=== PATIENT | male | born 1980 | race African-American/Black ===

== ENCOUNTER 2020-05-06 09:29 | Emergency (ER) | payer OTHER ==
[~2020-05-06] VITALS: Ht 167.6 cm; Wt 66.7 kg
[2020-05-06 09:41] VITALS: BP 114/71
[2020-05-06] MEDS ORDERED: IBUPROFEN600 M1 ORAL (10:32)
--- NOTE | 2020-05-06 10:37 | Emergency Room Report ---
History of Present Illness General Chief Complaint: Upper Extremity Injury Source: Patient Present Illness HPI 39-year-old male here with 3 days of right hand pain after striking his hand against a hard piece of wood. The patient was doing a small construction project when he struck his right palm against a heavy piece of wood 3 days ago. He has been having worsening pain and swelling since this occurred. No break in the skin. No other injuries. Patient takes mesalamine for Crohn's disease. Otherwise healthy. No focal numbness or weakness. Normal range of motion. Allergies: Coded Allergies: No Known Allergies (Unverified , 05/06/20) COVID-19 Screening Contact w/high risk pt: Yes Experienced COVID-19 symptoms?: No COVID-19 Testing performed [employer]: Yes COVID-19 Screening: PUI COVID-19 COVID-19 Testing Source: 05/05/20 Nursing Documentation-[facility] Past Medical History: No History, Except For Hx Asthma: Yes Review of Systems All Other Systems: negative except mentioned in HPI Physical Exam Vital Signs Date Time Temp Pulse Resp B/P (MAP) Pulse Ox O2 Delivery O2 Flow Rate FiO2 05/06/20 09:32 98.1 90 20 117/72 (87) 94 Room Air Sp02 EP Interpretation: reviewed, normal General Appearance: no apparent distress, alert, non-toxic Head: normocephalic, atraumatic Eyes: bilateral eye normal inspection, bilateral eye PERRL ENT: hearing grossly normal, normal pharynx, no angioedema, normal voice Neck: full range of motion, supple/symm/no masses Respiratory: chest non-tender, lungs clear, normal breath sounds, speaking full sentences Cardiovascular #1: regular rate, rhythm, no edema Cardiovascular #2: 2+ carotid (R), 2+ carotid (L), 2+ radial (R), 2+ radial (L), 2+ dorsalis pedis (R), 2+ dorsalis pedis (L) Gastrointestinal: normal bowel sounds, non tender, soft, non-distended, no guarding, no rebound Rectal: deferred Genitourinary: normal inspection, no CVA tenderness Musculoskeletal: back normal, normal range of motion, gait/station normal, other - Tenderness on palpation of the palmar aspect of the right third distal metacarpal. Normal range of motion. Neurovascularly intact Neurologic: alert, motor strength/tone normal, oriented x3, sensory intact, responsive, speech normal Psychiatric: judgement/insight normal, memory normal, mood/affect normal, no suicidal/homicidal ideation Reflexes: 3+ bicep (R), 3+ bicep (L), 3+ tricep (R), 3+ tricep (L), 3+ knee (R), 3+ knee (L) Lymphatic: no adenopathy Medical Decision Making Diagnostic Impression: Primary Impression: Injury of upper extremity ER Course X-ray right hand: No fracture or dislocation Splint note: Jerson wrap applied to right hand. Patient neurovascular intact before and after the Jerson wrap was placed. 39-year-old male here with right hand pain after striking his right hand against a heavy piece of wood 3 days ago. Patient was neurovascular intact in the emergency department. There is no obvious swelling but there was tenderness on palpation of the right third distal metacarpal. X-ray did not reveal any acute abnormalities. Jerson wrap was applied to the right hand. Patient will follow-up with primary care. Discharged in stable condition. Last Vital Signs Date Time Temp Pulse Resp B/P (MAP) Pulse Ox O2 Delivery O2 Flow Rate FiO2 05/06/20 09:41 98.1 79 18 114/71 96 Room Air Disposition: HOME, SELF-CARE Condition: Stable Scripts Ibuprofen* (MOTRIN*) 600 Mg Tablet 600 MG ORAL Q6H PRN for FOR PAIN, #20 TAB 0 Refills Prov: Kong Allen M.D. 05/06/20 Referrals: [facility] Departure Forms: Return to Work Other Restrictions: Do not lift anything heavier than 10 pounds with the right hand for 7 days Patient Instructions: Hand Contusion Kong Allen M.D. May 06, 2020 10:37
[2020-05-06 10:41] VITALS: BP 118/70
--- NOTE | 2020-05-06 13:48 | Diagnostic Imaging Report ---
INDICATION: Hand pain TECHNIQUE: Frontal, lateral, and oblique views of the right hand. COMPARISON: None FINDINGS: No acute fracture or dislocation. Deformity of the fifth metacarpal head may be developmental or secondary to old trauma. I spaces are maintained. No acute soft tissue abnormality. IMPRESSION: No acute fracture or dislocation.
== END 2020-05-06 10:45 | disposition home or self-care (01) ==
LOC: EMR 10:20
DX: S69.91XA Unspecified injury of right wrist, hand and finger(s), initial encounter (principal); J45.909 Unspecified asthma, uncomplicated; K50.90 Crohn's disease, unspecified, without complications; Z79.899 Other long term (current) drug therapy; W22.8XXA Striking against or struck by other objects, initial encounter; Y93.9 Activity, unspecified; Y92.9 Unspecified place or not applicable
CPT/HCPCS: 73130; Z7502; 99283

== ENCOUNTER 2020-05-13 10:05 | Inpatient (IN) | payer OTHER ==
[~2020-05-13] VITALS: Ht 167.6 cm; Wt 66.7 kg
[~2020-05-13 10:05] MED LIST: IBUPROFEN600 M1 ORAL
[2020-05-13 10:29] VITALS: BP 118/74
--- NOTE | 2020-05-13 10:43 | Emergency Room Report ---
History of Present Illness General Chief Complaint: Upper Extremity Injury Source: Patient Present Illness HPI Patient returns after being seen on May 06. He injured his right hand try to hammer a piece of wood with his palm. X-rays were done that were negative. He now presents with inability to move his fingers well, swelling, fevers chills and pain radiating up his arm. He feels his veins are inflamed and infected. The pain is rated 7/10 and aching and pressure in the hand. Unknown last tetanus vaccination. Patient denies exposure to Covid positive contacts. No sore throat, chest pain, palpitations, nausea, vomiting, diarrhea, dysuria, abdominal pain, shortness of breath, depression, anxiety, visual changes, dizziness, headache. History of asthma. Allergies: Coded Allergies: No Known Allergies (Unverified , 05/06/20) COVID-19 Screening Contact w/high risk pt: No Experienced COVID-19 symptoms?: No COVID-19 Testing performed [employer]CR[employer]: Yes COVID-19 Screening: Negative COVID-19 COVID-19 Testing Source: nasal Patient History Past Medical History: see triage record, old chart reviewed Social History: Reports: smoking, alcohol use, drug use - THC Social History Narrative Works construction jobs Reviewed Nursing Documentation: PMH: Agreed; PSxH: Agreed Nursing Documentation-PMH Past Medical History: No History, Except For Hx Asthma: Yes Review of Systems All Other Systems: negative except mentioned in HPI Physical Exam Vital Signs Date Time Temp Pulse Resp B/P (MAP) Pulse Ox O2 Delivery O2 Flow Rate FiO2 05/13/20 10:18 98.2 111 16 118/76 (90) 98 Room Air Sp02 EP Interpretation: reviewed, normal General Appearance: well appearing, no apparent distress, GCS 15, non-toxic Head: normocephalic Eyes: bilateral eye normal inspection, bilateral eye PERRL, bilateral eye EOMI ENT: moist mucus membranes Neck: supple Respiratory: lungs clear, normal breath sounds Cardiovascular #1: normal peripheral pulses, no edema, tachycardia Cardiovascular #2: 2+ radial (R) - Good capillary refill Gastrointestinal: normal inspection, normal bowel sounds, non tender, no mass, non-distended Musculoskeletal: back normal, gait/station normal, tender - And, swelling - Hand, other - Painful extension mainly of middle finger and unable to make a fist Neurologic: alert, distal neuro normal, oriented x3 Psychiatric: mood/affect normal Skin: warm/dry, other - Center of Palm with possible abscess Medical Decision Making Diagnostic Impression: Primary Impression: Hand flexor tenosynovitis ER Course Patient presents after hand trauma 10 days ago with swelling appearance of possible pus in the palm and pain with movement of his fingers. Clinical diagnosis is deep palm infection with flexor tendon involvement, abscess, cellulitis amongst others. Work-up is undertaken with labs including blood cultures and antibiotics ordered along with analgesia. This is a serious infection of the hand and will need evaluation by orthopedics or general surgery along with ongoing IV antibiotics. X-rays are reviewed. Soft tissue swelling without fracture. Leukocytosis. CMP normal. Antibiotics administered. Patient reports increased pain. Patient evaluated by general surgeon in the emergency department. Patient admitted for IV antibiotics and further evaluation. Laboratory Tests Test 05/13/20 10:44 05/13/20 11:29 White Blood Count 24.8 K/UL (4.8-10.8) *H Red Blood Count 4.86 M/UL (4.70-6.10) Hemoglobin 15.7 G/DL (14.2-18.0) Hematocrit 44.6 % (42.0-52.0) Mean Corpuscular Volume 92 FL (80-99) Mean Corpuscular Hemoglobin 32.2 PG (27.0-31.0) H Mean Corpuscular Hemoglobin Concent 35.1 G/DL (32.0-36.0) Red Cell Distribution Width 14.2 % (11.6-14.8) Platelet Count 198 K/UL (150-450) Mean Platelet Volume 7.8 FL (6.5-10.1) Neutrophils (%) (Auto) % (45.0-75.0) Lymphocytes (%) (Auto) % (20.0-45.0) Monocytes (%) (Auto) % (1.0-10.0) Eosinophils (%) (Auto) % (0.0-3.0) Basophils (%) (Auto) % (0.0-2.0) Differential Total Cells Counted 100 Neutrophils % (Manual) 82 % (45-75) H Lymphocytes % (Manual) 11 % (20-45) L Monocytes % (Manual) 5 % (1-10) Eosinophils % (Manual) 0 % (0-3) Basophils % (Manual) 0 % (0-2) Band Neutrophils 2 % (0-8) Platelet Estimate Adequate Platelet Morphology Normal Red Blood Cell Morphology Normal Erythrocyte Sedimentation Rate 14 MM/HR (0-15) Prothrombin Time 11.2 SEC (9.30-11.50) Prothrombin Time INR 1.0 (0.9-1.1) Activated Partial Thromboplast Time 31 SEC (23-33) Sodium Level 134 MMOL/L (136-145) L Potassium Level 3.6 MMOL/L (3.5-5.1) Chloride Level 97 MMOL/L (98-107) L Carbon Dioxide Level 28 MMOL/L (21-32) Anion Gap 9 mmol/L (5-15) Blood Urea Nitrogen 7 mg/dL (7-18) Creatinine 0.9 MG/DL (0.55-1.30) Estimated Glomerular Filtration Rate > 60 mL/min (>60) Glucose Level 107 MG/DL (74-106) H Lactic Acid Level 1.90 mmol/L (0.4-2.0) Calcium Level 8.9 MG/DL (8.5-10.1) Total Bilirubin 0.4 MG/DL (0.2-1.0) Aspartate Amino Transferase (AST) 22 U/L (15-37) Alanine Aminotransferase (ALT) 22 U/L (12-78) Alkaline Phosphatase 68 U/L (46-116) Total Protein 8.4 G/DL (6.4-8.2) H Albumin 3.2 G/DL (3.4-5.0) L Globulin 5.2 g/dL Albumin/Globulin Ratio 0.6 (1.0-2.7) L Urine Color Pale yellow Urine Appearance Clear Urine pH 6.5 (4.5-8.0) Urine Specific [place] 1.005 (1.005-1.035) Urine Protein Negative (NEGATIVE) Urine Glucose (UA) Negative (NEGATIVE) Urine Ketones Negative (NEGATIVE) Urine Blood 2+ (NEGATIVE) H Urine Nitrite Negative (NEGATIVE) Urine Bilirubin Negative (NEGATIVE) Urine Urobilinogen Normal MG/DL (0.0-1.0) Urine Leukocyte Esterase Negative (NEGATIVE) Urine RBC 2-4 /HPF (0 - 0) H Urine WBC 0-2 /HPF (0 - 0) Urine Squamous Epithelial Cells None /LPF (NONE/OCC) Urine Bacteria Occasional /HPF (NONE) Other X-Ray Diagnostic Results Other X-Ray Diagnostic Results : X-Ray ordered: Hand May 06 # of Views/Limited Vs Complete: 3 View Indication: Other EP Interpretation: Yes Interpretation: no dislocation, no soft tissue swelling, no fractures Impression: No acute disease Electronically Signed by: Electronically signed by Thanh Burnham MD Last Vital Signs Date Time Temp Pulse Resp B/P (MAP) Pulse Ox O2 Delivery O2 Flow Rate FiO2 05/13/20 18:51 98.3 05/13/20 10:29 88 16 118/74 98 Room Air Status: improved Disposition: ADMITTED INPATIENT Condition: Serious Scripts No Active Prescriptions or Reported Meds Referrals: NON PHYSICIAN (PCP) Thanh Burnham MD May 13, 2020 10:43
[2020-05-13] MEDS ORDERED: Vancomycin 1 GM in NS 275 ML IVPB ONE (10:45)
[2020-05-13] MEDS ORDERED: Tetanus/Diptheria/Pertussis IM ONE (10:45)
[2020-05-13] MEDS ORDERED: Ketorolac 30mg Inj IV ONE ×2 (10:45→18:15)
[2020-05-13] MEDS ORDERED: Piperacillin/Tazobactam 3.375 GM in NS 110 ML IVPB ONE (10:45)
[2020-05-13 11:07] LABS: HEMATOCRIT 44.6 % (42.0-52.0); HEMOGLOBIN 15.7 G/DL (14.2-18.0); MEAN CORPUSCULAR VOLUME 92 FL (80-99); PLATELET COUNT 198 K/UL (150-450); RED BLOOD COUNT 4.86 M/UL (4.70-6.10); RED CELL DISTRIBUTION WIDTH 14.2 % (11.6-14.8)
[2020-05-13 11:11] LABS: WHITE BLOOD COUNT 24.8 K/UL (4.8-10.8)
[2020-05-13 11:18] LABS: ANION GAP 9 mmol/L (5-15); BLOOD UREA NITROGEN 7 mg/dL (7-18); CALCIUM 8.9 MG/DL (8.5-10.1); CARBON DIOXIDE 28 MMOL/L (21-32); CHLORIDE 97 MMOL/L (98-107); CREATININE 0.9 MG/DL (0.55-1.30); POTASSIUM 3.6 MMOL/L (3.5-5.1); SODIUM 134 MMOL/L (136-145)
[2020-05-13 11:23] LABS: ALANINE AMINOTRANSFERASE 22 U/L (12-78); ALBUMIN 3.2 G/DL (3.4-5.0); ALBUMIN/GLOBULIN RATIO 0.6 (1.0-2.7); ALKALINE PHOSPHATASE 68 U/L (46-116); ASPARTATE AMINO TRANSFERASE 22 U/L (15-37); BILIRUBIN,TOTAL 0.4 MG/DL (0.2-1.0)
[2020-05-13 12:57] LABS: APPEARANCE,URINE CLEAR; BILIRUBIN, URINE NEGATIVE (NEGATIVE); COLOR,URINE PALE YELLOW; GLUCOSE, URINE (UA) NEGATIVE (NEGATIVE); KETONES,URINE NEGATIVE (NEGATIVE); LEUKOCYTE ESTERASE ,URINE NEGATIVE (NEGATIVE); NITRITE,URINE NEGATIVE (NEGATIVE); PH,URINE 6.5 (4.5-8.0); PROTEIN,URINE NEGATIVE (NEGATIVE); UROBILINOGEN,URINE NORMAL MG/DL (0.0-1.0)
[2020-05-13] MEDS ORDERED: Morphine Sulfate 4mg/ml Inj (IV USE ONLY) IVP ONE (15:45)
--- NOTE | 2020-05-13 16:06 | Consultation ---
History of Present Illness General Date patient seen: May 13, 2020 Reason for Hospitalization: Upper Extremity Injury Present Illness HPI This is a very pleasant 31-year-old male who presents [facility] complaining of worsening right hand pain. Patient states approximately weeks ago he was using hand to hammer in something for himself. Initially noted some pain but no significant injury. Over the course of the subsequent next few days the patient identified the hand beginning to swell. Came in for evaluation was given local care and continue to monitor. Unfortunately hand has become more swollen with limited range of motion discomfort from swelling. Surgery called to eval and assist with care. Patient seen, patient evaluate, chart reviewed. No nausea vomiting. Did note some subjective fevers. Allergies: Coded Allergies: No Known Allergies (Unverified , 05/06/20) COVID-19 Screening Contact w/high risk pt: No Experienced COVID-19 symptoms?: No Medication History No Active Prescriptions or Reported Meds Patient History History Provided By: Patient, Medical Record, PMD Healthcare decision maker Resuscitation status Advanced Directive on File Past Medical/Surgical History Past Medical/Surgical History: (1) Injury of upper extremity (2) Injury of right upper extremity Review of Systems Review of Symptoms General ROS: no weight loss or fever Psychological ROS: no depression or mood changes, no memory loss Ophthalmic ROS: no visual changes or eye irritation ENT ROS: no nasal congestion, hearing loss, dizziness Allergy and Immunology ROS: no allergic symptoms or urticaria Hematological and Lymphatic ROS: no swollen glands, unusual bleeding or bruising Endocrine ROS: no polyuria, polydipsia, weight changes, temperature intolerance Respiratory ROS: no cough, shortness of breath, or wheezing Cardiovascular ROS: no chest pain or dyspnea on exertion Gastrointestinal ROS: denies abdominal pain, bright red blood in stool. Musculoskeletal ROS: no myalgias or arthralgias Neurological ROS: no TIA or stroke symptoms Dermatological ROS: no new or changing skin lesions, rashes or pruritis Physical Exam Physical Exam General appearance: alert, cooperative, no distress, appears stated age Head: Normocephalic, without obvious abnormality, atraumatic Eyes: conjunctivae/corneas clear. PERRL, EOM's intact. Fundi benign Throat: Lips, mucosa, and tongue normal. Teeth and gums normal Neck: supple, symmetrical, trachea midline, no adenopathy, thyroid: not enlarged, symmetric, no tenderness/mass/nodules, no carotid bruit and no JVD Lungs: clear to auscultation bilaterally Heart: regular rate and rhythm, S1, S2 normal, no murmur, click, rub or gallop Abdomen: soft, non-tender. Bowel sounds normal. No masses, no organomegaly Extremities: extremities ++traumatic, no cyanosis ++edema no drainage Pulses: 2+ and symmetric Skin: Skin color, texture, turgor normal. No rashes or lesions Neurologic: Grossly normal Last 24 Hour Vital Signs Date Time Temp Pulse Resp B/P (MAP) Pulse Ox O2 Delivery O2 Flow Rate FiO2 05/13/20 11:26 98.3 05/13/20 10:29 98.0 88 16 118/74 98 Room Air 05/13/20 10:18 98.2 111 16 118/76 (90) 98 Room Air Laboratory Tests Test 05/13/20 10:44 05/13/20 11:29 White Blood Count 24.8 K/UL (4.8-10.8) *H Red Blood Count 4.86 M/UL (4.70-6.10) Hemoglobin 15.7 G/DL (14.2-18.0) Hematocrit 44.6 % (42.0-52.0) Mean Corpuscular Volume 92 FL (80-99) Mean Corpuscular Hemoglobin 32.2 PG (27.0-31.0) H Mean Corpuscular Hemoglobin Concent 35.1 G/DL (32.0-36.0) Red Cell Distribution Width 14.2 % (11.6-14.8) Platelet Count 198 K/UL (150-450) Mean Platelet Volume 7.8 FL (6.5-10.1) Neutrophils (%) (Auto) % (45.0-75.0) Lymphocytes (%) (Auto) % (20.0-45.0) Monocytes (%) (Auto) % (1.0-10.0) Eosinophils (%) (Auto) % (0.0-3.0) Basophils (%) (Auto) % (0.0-2.0) Differential Total Cells Counted 100 Neutrophils % (Manual) 82 % (45-75) H Lymphocytes % (Manual) 11 % (20-45) L Monocytes % (Manual) 5 % (1-10) Eosinophils % (Manual) 0 % (0-3) Basophils % (Manual) 0 % (0-2) Band Neutrophils 2 % (0-8) Platelet Estimate Adequate Platelet Morphology Normal Red Blood Cell Morphology Normal Erythrocyte Sedimentation Rate 14 MM/HR (0-15) Prothrombin Time 11.2 SEC (9.30-11.50) Prothromb Time International Ratio 1.0 (0.9-1.1) Activated Partial Thromboplast Time 31 SEC (23-33) Sodium Level 134 MMOL/L (136-145) L Potassium Level 3.6 MMOL/L (3.5-5.1) Chloride Level 97 MMOL/L (98-107) L Carbon Dioxide Level 28 MMOL/L (21-32) Anion Gap 9 mmol/L (5-15) Blood Urea Nitrogen 7 mg/dL (7-18) Creatinine 0.9 MG/DL (0.55-1.30) Estimat Glomerular Filtration Rate > 60 mL/min (>60) Glucose Level 107 MG/DL (74-106) H Lactic Acid Level 1.90 mmol/L (0.4-2.0) Calcium Level 8.9 MG/DL (8.5-10.1) Total Bilirubin 0.4 MG/DL (0.2-1.0) Aspartate Amino Transf (AST/SGOT) 22 U/L (15-37) Alanine Aminotransferase (ALT/SGPT) 22 U/L (12-78) Alkaline Phosphatase 68 U/L (46-116) Total Protein 8.4 G/DL (6.4-8.2) H Albumin 3.2 G/DL (3.4-5.0) L Globulin 5.2 g/dL Albumin/Globulin Ratio 0.6 (1.0-2.7) L Urine Color Pale yellow Urine Appearance Clear Urine pH 6.5 (4.5-8.0) Urine Specific [place] 1.005 (1.005-1.035) Urine Protein Negative (NEGATIVE) Urine Glucose (UA) Negative (NEGATIVE) Urine Ketones Negative (NEGATIVE) Urine Blood 2+ (NEGATIVE) H Urine Nitrite Negative (NEGATIVE) Urine Bilirubin Negative (NEGATIVE) Urine Urobilinogen Normal MG/DL (0.0-1.0) Urine Leukocyte Esterase Negative (NEGATIVE) Urine RBC 2-4 /HPF (0 - 0) H Urine WBC 0-2 /HPF (0 - 0) Urine Squamous Epithelial Cells None /LPF (NONE/OCC) Urine Bacteria Occasional /HPF (NONE) Height (Feet): 5 Height (Inches): 6.00 Weight (Pounds): 147 Assessment/Plan Problem List: (1) Injury of upper extremity Assessment & Plan: 39-year-old male with right hand swelling after using his hand as a hammer to impaled some wood in. Initially seen plain films done no fracture. Subsequently has developed edema. Subjective fevers. Labs noted prior imaging reviewed. No fluctuation identified currently. Edema. Potential residual trauma or potential infection. No foreign body identified. Patient will be admitted for IV antibiotics. Considerations of orthopedic hand surgery evaluation. Imaging consider MRI or CT of the hand. Keep right hand elevated to allow with flow. Wash hand. Antibiotics. Will follow with recommendations. Thank you for let me participation's care ICD Codes: S49.90XA - Unspecified injury of shoulder and upper arm, unspecified arm, initial encounter SNOMED: 642889131 (2) Injury of right upper extremity Assessment & Plan: No acute fracture or dislocation. Deformity of the fifth metacarpal head may be developmental or secondary to old trauma. I spaces are maintained. No acute soft tissue abnormality. IMPRESSION: No acute fracture or dislocation. ICD Codes: S49.91XA - Unspecified injury of right shoulder and upper arm, initial encounter SNOMED: [id number] Junior Mac May 13, 2020 16:06
[2020-05-13] MEDS ORDERED: Miralax 17gm pkt ORAL PRN (16:30)
[2020-05-13] MEDS ORDERED: Albuterol/Ipratropium 3ml neb HHN PRN (16:30)
[2020-05-13] MEDS ORDERED: Ketorolac 30mg Inj ONE (18:13)
[2020-05-13] MEDS: Heparin 5000 units/ml inj SUBQ SCH (21:56)
[2020-05-13 22:00] VITALS: BP 121/73
[2020-05-13] MEDS: Cefepime HCl 2 GM in D5W 110 ML IV SCH (22:00)
[2020-05-13] MEDS: Vancomycin 1gm/D5W 275ml IVPB SCH ×2 (23:28)
[2020-05-13] MEDS: Ketorolac 30mg Inj IV PRN (23:41)
[2020-05-14] VITALS: BP 124/69
[2020-05-14] MEDS ORDERED: Vancomycin 1 GM in D5W 275 ML IV SCH (00:30)
[2020-05-14 04:00] VITALS: BP 131/92
[2020-05-14 06:15] LABS: HEMATOCRIT 41.5 % (42.0-52.0); HEMOGLOBIN 14.9 G/DL (14.2-18.0); MEAN CORPUSCULAR VOLUME 90 FL (80-99); PLATELET COUNT 198 K/UL (150-450); RED CELL DISTRIBUTION WIDTH 14.3 % (11.6-14.8)
[2020-05-14] MEDS: Ketorolac 30mg Inj IV PRN ×2 (06:38→12:41)
[2020-05-14 06:43] LABS: WHITE BLOOD COUNT 25.8 K/UL (4.8-10.8)
[2020-05-14 06:49] LABS: ALANINE AMINOTRANSFERASE 26 U/L (12-78); ALBUMIN 2.7 G/DL (3.4-5.0); ALBUMIN/GLOBULIN RATIO 0.6 (1.0-2.7); ALKALINE PHOSPHATASE 74 U/L (46-116); ANION GAP 6 mmol/L (5-15); ASPARTATE AMINO TRANSFERASE 33 U/L (15-37); BILIRUBIN,TOTAL 0.5 MG/DL (0.2-1.0); BLOOD UREA NITROGEN 10 mg/dL (7-18); CALCIUM 8.6 MG/DL (8.5-10.1); CARBON DIOXIDE 29 MMOL/L (21-32); CHLORIDE 98 MMOL/L (98-107); SODIUM 133 MMOL/L (136-145)
[2020-05-14 08:00] VITALS: BP 120/79
--- NOTE | 2020-05-14 08:22 | Consultation ---
History of Present Illness General Date patient seen: May 14, 2020 Time patient seen: 13:18 Chief Complaint: Upper Extremity Injury Referring physician: Dr. Mcfarland Reason for Consultation: Sepsis Present Illness HPI 39yo M who injured his R hand while trying to hammer a piece of wood w/ his palm on 05/06, XRs at that time were neg, now representing with inability to move his fingers as well as swelling, fevers/chills and pain radiating up his arm. ID consulted for infection. In house, pt AF and HDS but with leukocytosis to 25. Pt reports numbness of R palmar surface and in 2nd and 3rd fingers, unable to flex all 5 fingers 2/2 pain. Feels that hand is same as yesterday, not worse and not better. Pain and swelling extends up R arm, feels that "it's in my veins". Confirmed he got the Tdap in ED. Allergies: Coded Allergies: No Known Allergies (Unverified , 05/06/20) Medication History No Active Prescriptions or Reported Meds Patient History Healthcare decision maker Resuscitation status Advanced Directive on File Review of Systems ROS Narrative 10-point ROS neg except as noted in HPI Physical Exam Physical Exam Narrative Gen: NAD HEENT: NCAT Pulm: BL chest rise on RA Abd: Non-distended Ext: LUE wnl. RUE w/ R hand swelling and erythema and warmth, decreased ROM of fingers 2/2 swelling, unable to flex 2/2 pain. Distal palmar surface w/ what appears to be abscess underneath skin, bubbling of skin w/ discoloration under, numb in this area. Numbness of 2nd and 3rd fingers. Erythema/swelling extending up R hard to R elbow. Neuro: Awake, alert, interactive Last 24 Hour Vital Signs Date Time Temp Pulse Resp B/P (MAP) Pulse Ox O2 Delivery O2 Flow Rate FiO2 05/14/20 04:00 99.3 77 18 131/92 (105) 99 05/14/20 00:11 98.1 05/14/20 00:00 98.7 82 16 124/69 (87) 99 05/13/20 22:00 98.1 75 18 121/73 (89) 97 05/13/20 21:40 Room Air 05/13/20 21:30 97.5 78 18 122/69 97 Room Air 05/13/20 18:51 98.3 05/13/20 16:09 98.3 05/13/20 11:26 98.3 05/13/20 10:29 98.0 88 16 118/74 98 Room Air 05/13/20 10:18 98.2 111 16 118/76 (90) 98 Room Air Intake and Output 05/13/20 05/14/20 19:00 07:00 Intake Total 375 ml 1025.000 ml Balance 375 ml 1025.000 ml Intake Oral 640 ml IV Total 375 ml 385.000 ml # Voids 2 Laboratory Tests Test 05/13/20 10:44 05/13/20 11:29 05/14/20 05:51 White Blood Count 24.8 K/UL (4.8-10.8) *H 25.8 K/UL (4.8-10.8) *H Red Blood Count 4.86 M/UL (4.70-6.10) 4.60 M/UL (4.70-6.10) L Hemoglobin 15.7 G/DL (14.2-18.0) 14.9 G/DL (14.2-18.0) Hematocrit 44.6 % (42.0-52.0) 41.5 % (42.0-52.0) L Mean Corpuscular Volume 92 FL (80-99) 90 FL (80-99) Mean Corpuscular Hemoglobin 32.2 PG (27.0-31.0) H 32.4 PG (27.0-31.0) H Mean Corpuscular Hemoglobin Concent 35.1 G/DL (32.0-36.0) 35.9 G/DL (32.0-36.0) Red Cell Distribution Width 14.2 % (11.6-14.8) 14.3 % (11.6-14.8) Platelet Count 198 K/UL (150-450) 198 K/UL (150-450) Mean Platelet Volume 7.8 FL (6.5-10.1) 7.1 FL (6.5-10.1) Neutrophils (%) (Auto) % (45.0-75.0) % (45.0-75.0) Lymphocytes (%) (Auto) % (20.0-45.0) % (20.0-45.0) Monocytes (%) (Auto) % (1.0-10.0) % (1.0-10.0) Eosinophils (%) (Auto) % (0.0-3.0) % (0.0-3.0) Basophils (%) (Auto) % (0.0-2.0) % (0.0-2.0) Differential Total Cells Counted 100 Neutrophils % (Manual) 82 % (45-75) H Pending Lymphocytes % (Manual) 11 % (20-45) L Pending Monocytes % (Manual) 5 % (1-10) Eosinophils % (Manual) 0 % (0-3) Basophils % (Manual) 0 % (0-2) Band Neutrophils 2 % (0-8) Platelet Estimate Adequate Pending Platelet Morphology Normal Pending Red Blood Cell Morphology Normal Erythrocyte Sedimentation Rate 14 MM/HR (0-15) Prothrombin Time 11.2 SEC (9.30-11.50) Prothromb Time International Ratio 1.0 (0.9-1.1) Activated Partial Thromboplast Time 31 SEC (23-33) Sodium Level 134 MMOL/L (136-145) L 133 MMOL/L (136-145) L Potassium Level 3.6 MMOL/L (3.5-5.1) 4.0 MMOL/L (3.5-5.1) Chloride Level 97 MMOL/L (98-107) L 98 MMOL/L (98-107) Carbon Dioxide Level 28 MMOL/L (21-32) 29 MMOL/L (21-32) Anion Gap 9 mmol/L (5-15) 6 mmol/L (5-15) Blood Urea Nitrogen 7 mg/dL (7-18) 10 mg/dL (7-18) Creatinine 0.9 MG/DL (0.55-1.30) 1.0 MG/DL (0.55-1.30) Estimat Glomerular Filtration Rate > 60 mL/min (>60) > 60 mL/min (>60) Glucose Level 107 MG/DL (74-106) H 101 MG/DL (74-106) Lactic Acid Level 1.90 mmol/L (0.4-2.0) Calcium Level 8.9 MG/DL (8.5-10.1) 8.6 MG/DL (8.5-10.1) Total Bilirubin 0.4 MG/DL (0.2-1.0) 0.5 MG/DL (0.2-1.0) Aspartate Amino Transf (AST/SGOT) 22 U/L (15-37) 33 U/L (15-37) Alanine Aminotransferase (ALT/SGPT) 22 U/L (12-78) 26 U/L (12-78) Alkaline Phosphatase 68 U/L (46-116) 74 U/L (46-116) Total Protein 8.4 G/DL (6.4-8.2) H 7.6 G/DL (6.4-8.2) Albumin 3.2 G/DL (3.4-5.0) L 2.7 G/DL (3.4-5.0) L Globulin 5.2 g/dL 4.9 g/dL Albumin/Globulin Ratio 0.6 (1.0-2.7) L 0.6 (1.0-2.7) L Urine Color Pale yellow Urine Appearance Clear Urine pH 6.5 (4.5-8.0) Urine Specific [place] 1.005 (1.005-1.035) Urine Protein Negative (NEGATIVE) Urine Glucose (UA) Negative (NEGATIVE) Urine Ketones Negative (NEGATIVE) Urine Blood 2+ (NEGATIVE) H Urine Nitrite Negative (NEGATIVE) Urine Bilirubin Negative (NEGATIVE) Urine Urobilinogen Normal MG/DL (0.0-1.0) Urine Leukocyte Esterase Negative (NEGATIVE) Urine RBC 2-4 /HPF (0 - 0) H Urine WBC 0-2 /HPF (0 - 0) Urine Squamous Epithelial Cells None /LPF (NONE/OCC) Urine Bacteria Occasional /HPF (NONE) Height (Feet): 5 Height (Inches): 6.00 Weight (Pounds): 147 Medications Current Medications Medications (Trade) Dose Ordered Sig/Arnaldo Route PRN Reason Start Time Stop Time Status Last Admin Dose Admin Acetaminophen (Tylenol) 650 mg Q4H PRN ORAL fever 05/13/20 16:30 06/12/20 16:29 Albuterol/ Ipratropium (Albuterol/ Ipratropium) 3 ml Q4H PRN HHN Shortness of Breath 05/13/20 16:30 05/18/20 16:29 Cefepime HCl 2 gm/ Dextrose 110 ml @ 220 mls/hr EVERY 12 HOURS IV 05/13/20 21:00 05/20/20 20:59 05/13/20 22:00 Dextrose (Dextrose 50%) 25 ml Q30M PRN IV Hypoglycemia 05/13/20 16:30 08/11/20 16:29 Dextrose (Dextrose 50%) 50 ml Q30M PRN IV Hypoglycemia 05/13/20 16:30 08/11/20 16:29 Heparin Sodium (Porcine) (Heparin 5000 units/ml) 5,000 units EVERY 12 HOURS SUBQ 05/13/20 21:00 06/27/20 20:59 05/13/20 21:56 Ketorolac Tromethamine (Toradol 30mg) 30 mg Q6H PRN IV Severe Pain (Pain Scale 7-10) 05/13/20 23:30 05/18/20 23:29 05/14/20 06:38 Ondansetron HCl (Zofran) 4 mg Q6H PRN IVP Nausea & Vomiting 05/13/20 16:30 06/12/20 16:29 Polyethylene Glycol (Miralax) 17 gm DAILYPRN PRN ORAL Constipation 05/13/20 16:30 06/12/20 16:29 Temazepam (Restoril) 15 mg HSPRN PRN ORAL Insomnia 05/13/20 16:30 05/20/20 16:29 05/14/20 03:35 Vancomycin HCl (Vanco pharmacy to dose) 1 ea DAILY PRN MISC PER RX PROTOCOL 05/13/20 18:45 06/12/20 18:44 Vancomycin HCl 1 gm/Dextrose 275 ml @ 183.708 mls/hr Q12HR@1100,2300 IVPB 05/13/20 23:00 05/18/20 22:59 05/13/20 23:28 Assessment/Plan Assessment/Plan: 39yo M with: Sepsis Afebrile Leukocytosis to 25 R hand cellulitis r/o underlying abscess and/or bony/tendon involvement, infection extending up R arm to elbow 05/06 XR R hand: No acute fracture or dislocation. 05/13 BCx p UA neg COVID rapid p Cr 1.0 HIV screen neg Plan: Start metronidazole 500mg PO q8hrs Cont cefepime #2 Cont vanco IV #2 Recommend MRI w con of R hand and R arm to eval for underlying abscess and bone/tendon involvement HIV screen = neg COVID screen CXR screen Appreciate General Surgery/Ortho Hand evaluation Pt going to leave AMA so will not order MRI, pt aware he needs to go to a hospital w/ Ortho Hand at it SP Tdap in ED 05/13 Monitor CBC/CMP Monitor temp curve, hemodynamics Monitor resp status D/w RN and Dr. Acuna at bedside Thank you for this consult. [facility] will continue to follow. Deirdre Ward M.D. May 14, 2020 08:22
[2020-05-14] MEDS ORDERED: metroNIDAZOLE 500mg tab ORAL SCH (08:30)
[2020-05-14] MEDS: Cefepime HCl 2 GM in D5W 110 ML IV SCH (10:22)
[2020-05-14] MEDS: Heparin 5000 units/ml inj SUBQ SCH (10:25)
[2020-05-14] MEDS: Vancomycin 1gm/D5W 275ml IVPB SCH ×2 (11:35)
[2020-05-14] MEDS ORDERED: Omnipaque-300 100ml vial INJ PRN (12:15)
[2020-05-14] MEDS ORDERED: Tubing IV Secondary IV ONE (12:23)
[2020-05-14] MEDS ORDERED: D5NS 1000ml IV ONE (12:23)
--- NOTE | 2020-05-14 12:34 | Consultation ---
Consult Note Consult Note 39 year old male with swelling of his right hand after a recent trauma presented to ER and got admitted to Med/surg. Pt will need hand surgeon evaluation and intervention. We don't have any hand surgeon at this facility. I informed the Case management about the need to transfer to higher level of care. Pt is aware that he needs to go to a tertiary center. He wants to go to [facility]. Julieta Acuna MD May 14, 2020 12:34
--- NOTE | 2020-05-14 12:52 | Surgery Progress Note ---
Surgery Progress Note Subjective Additional Comments unfortunately have not been able to be seen by ortho or hand surgery as of yet. leukocytosis edema of hand states veins hurt has been on IV broad spectrum abx not improved over [address] ordered to eval abscess patient signed out AMA Objective Last 24 Hour Vital Signs Date Time Temp Pulse Resp B/P (MAP) Pulse Ox O2 Delivery O2 Flow Rate FiO2 05/14/20 12:11 98.9 05/14/20 09:00 Room Air 05/14/20 08:00 99.5 88 18 120/79 (93) 96 05/14/20 04:00 99.3 77 18 131/92 (105) 99 05/14/20 00:11 98.1 05/14/20 00:00 98.7 82 16 124/69 (87) 99 05/13/20 22:00 98.1 75 18 121/73 (89) 97 05/13/20 21:40 Room Air 05/13/20 21:30 97.5 78 18 122/69 97 Room Air 05/13/20 18:51 98.3 05/13/20 16:09 98.3 I&O Intake and Output 05/13/20 05/14/20 19:00 07:00 Intake Total 375 ml 1025.000 ml Balance 375 ml 1025.000 ml Intake Oral 640 ml IV Total 375 ml 385.000 ml # Voids 2 Cardiovascular: RSR Respiratory: clear Abdomen: soft, non-tender, present bowel sounds Extremities: edema, tenderness, no cyanosis, pulses Laboratory Tests Test 05/14/20 05:00 05/14/20 05:51 HIV (1&2) Antibody Rapid Negative (NEGATIVE) White Blood Count 25.8 K/UL (4.8-10.8) *H Red Blood Count 4.60 M/UL (4.70-6.10) L Hemoglobin 14.9 G/DL (14.2-18.0) Hematocrit 41.5 % (42.0-52.0) L Mean Corpuscular Volume 90 FL (80-99) Mean Corpuscular Hemoglobin 32.4 PG (27.0-31.0) H Mean Corpuscular Hemoglobin Concent 35.9 G/DL (32.0-36.0) Red Cell Distribution Width 14.3 % (11.6-14.8) Platelet Count 198 K/UL (150-450) Mean Platelet Volume 7.1 FL (6.5-10.1) Neutrophils (%) (Auto) % (45.0-75.0) Lymphocytes (%) (Auto) % (20.0-45.0) Monocytes (%) (Auto) % (1.0-10.0) Eosinophils (%) (Auto) % (0.0-3.0) Basophils (%) (Auto) % (0.0-2.0) Differential Total Cells Counted 100 Neutrophils % (Manual) 77 % (45-75) H Lymphocytes % (Manual) 8 % (20-45) L Monocytes % (Manual) 9 % (1-10) Eosinophils % (Manual) 1 % (0-3) Basophils % (Manual) 0 % (0-2) Band Neutrophils 5 % (0-8) Platelet Estimate Adequate Platelet Morphology Normal Anisocytosis 1+ Sodium Level 133 MMOL/L (136-145) L Potassium Level 4.0 MMOL/L (3.5-5.1) Chloride Level 98 MMOL/L (98-107) Carbon Dioxide Level 29 MMOL/L (21-32) Anion Gap 6 mmol/L (5-15) Blood Urea Nitrogen 10 mg/dL (7-18) Creatinine 1.0 MG/DL (0.55-1.30) Estimat Glomerular Filtration Rate > 60 mL/min (>60) Glucose Level 101 MG/DL (74-106) Calcium Level 8.6 MG/DL (8.5-10.1) Total Bilirubin 0.5 MG/DL (0.2-1.0) Aspartate Amino Transf (AST/SGOT) 33 U/L (15-37) Alanine Aminotransferase (ALT/SGPT) 26 U/L (12-78) Alkaline Phosphatase 74 U/L (46-116) Total Protein 7.6 G/DL (6.4-8.2) Albumin 2.7 G/DL (3.4-5.0) L Globulin 4.9 g/dL Albumin/Globulin Ratio 0.6 (1.0-2.7) L Plan Problems: (1) Injury of upper extremity Assessment & Plan: 39-year-old male with right hand swelling after using his hand as a hammer to impaled some wood in. Initially seen plain films done no fracture. Subsequently has developed edema. Subjective fevers. Labs noted prior imaging reviewed. No fluctuation identified currently. Edema. Potential residual trauma or potential infection. No foreign body identified. Patient will be admitted for IV antibiotics. Considerations of orthopedic hand surgery evaluation. Imaging consider MRI or CT of the hand. Keep right hand elevated to allow with flow. Wash hand. Antibiotics. Will follow with recommendations. Thank you for let me participation's care CT ordered patient signed out ama (2) Injury of right upper extremity Assessment & Plan: No acute fracture or dislocation. Deformity of the fifth metacarpal head may be developmental or secondary to old trauma. I spaces are maintained. No acute soft tissue abnormality. IMPRESSION: No acute fracture or dislocation. Junior Mac May 14, 2020 12:52
--- NOTE | 2020-05-14 14:11 | History & Physical ---
History and Physical History & Physicial Patient sign AMA prior my visit Christopher Mcfarland MD May 14, 2020 14:11
--- NOTE | 2020-05-14 18:49 | Discharge Summary ---
Discharge Summary Discharge Summary _ Date of admission: 05/13/2020 Patient left AGAINST MEDICAL ADVICE on 05/14/2020 Reason for hospitalization: David Hines is a 39-year-old male who presented to the emergency room for evaluation of his right hand. On 05/06/2020 he was seen in the emergency room for a right hand injury when he struck his right palm against a heavy piece of wood 3 days prior. On 05/06/2020 x-ray of the right hand showed no fracture or dislocation. Subsequently an Jerson wrap was applied to his right hand. Pain was adequately controlled with ibuprofen. Patient was instructed to follow-up with primary care and was discharged in stable condition. 7 days later revisited the emergency room with new complaints related to his right hand including inability to move his fingers well, edema, fevers, chills and pain radiating up his arm. He rated the pain as 7 out of 10 and aching and pressure-like in nature. On exam he had painful extension mainly of middle finger and inability to make a fist. Distal palmar surface showed what appeared to be abscess underneath the skin, bubbling of skin with discoloration. Patient reported numbness of right palmar surface and in second and third fingers, inability to flex all 5 digits secondary to pain. Erythema and swelling seen extending up right hand to right elbow. Lab studies showed leukocytosis with normal CMP. Antibiotics and Tdap were administered in the emergency room. Patient was admitted to hospital for IV antibiotics and further evaluation. Blood culture, rapid COVID-19 test, along with MRI and/or CT of the hand with contrast were considered for evaluation of abscess but were either not ordered or canceled due to the patient's request to leave AGAINST MEDICAL ADVICE. He was made aware that he needs to go to a tertiary center where a hand surgeon is located. Patient expressed his wish to go to [facility] and signed AMA. Consultants: Surgery Dr. Mac Pain management Dr. Acuna Infectious disease Dr. Ward Condition of patient on discharge Medically stable, pain controlled Final diagnoses Sepsis Leukocytosis Right hand cellulitis I have been assigned to dictate discharge summary for this account. I was not involved in the patient's management Samuel Garduno May 14, 2020 18:49
== END 2020-05-14 13:25 | disposition left against medical advice (07) | DRG 720 ==
LOC: EMR 10:31 → 4E 11:08 → EDBEDREQ 20:28
DX: A41.9 Sepsis, unspecified organism (principal); L03.113 Cellulitis of right upper limb; S69.91XA Unspecified injury of right wrist, hand and finger(s), initial encounter; W22.8XXA Striking against or struck by other objects, initial encounter
CPT/HCPCS: 36415; 80053; 81001; 83605; 85007; 85025; 85610; 85651; 85730; 86703; 87040; 90471; 90715; 96365; 96367; 96375; 99285; J2405